=== PATIENT | female | born 1940 | race Caucasian/White ===

== ENCOUNTER 2024-11-24 18:57 | Emergency (ER) | payer MEDICARE ==
[~2024-11-24] VITALS: Ht 165.1 cm; Wt 59.1 kg
[2024-11-24] MEDS ORDERED: orphenadrine citrate 60mg/2ml inj. IM ONE (21:05)
[2024-11-24] MEDS: ketorolac trometh 15mg/ml vial 15 MG/ML ML IM ONE (21:50)
[2024-11-24] MEDS: LIDOcaine 5% patch TP ONE (21:51)
[2024-11-24] MEDS: ondansetron 4mg rapidly disintigrating tab PO ONE (21:51)
[2024-11-24] MEDS: acetaminophen 325mg tablet PO ONE (21:51)
[2024-11-24] MEDS ORDERED: iohexol 350MG/ML 100ml bottle IV ONE (22:14)
[2024-11-24 23:05] LABS: BASOPHILS % (AUTO) 0.3 % (0-1); EOSINOPHILS % (AUTO) 0.1 % (0-6); HEMATOCRIT 37.7 % (35.0-45.0); HEMOGLOBIN 12.8 g/dl (12.0-16.0); LYMPHOCYTES % (AUTO) 8.3 % (21-51); MEAN CORPUSCULAR HGB CONC 33.9 g/dL (33.0-36.5); MEAN CORPUSCULAR VOLUME 85.6 FL (78-98); MEAN PLATELET VOLUME 6.9 FL (7.4-10.4); MONOCYTES # (AUTO) 0.6 X10'3 (0-0.9); MONOCYTES % (AUTO) 4.7 % (2-12); NEUTROPHILS # (AUTO) 10.5 X10'3 (1.8-7.7); NEUTROPHILS % (AUTO) 86.6 % (42-75); PLATELET COUNT 223 X10'3 (140-440); RED BLOOD COUNT 4.41 X10'6 (4.20-5.60); RED CELL DISTRIBUTION WIDTH 13.6 % (11.5-14.5); WHITE BLOOD COUNT 12.2 X10'3 (4.5-11.0)
[2024-11-24] MEDS: esmolol/sodium cl bag 250 ML IV SCH (23:09)
[2024-11-24 23:16] LABS: ALBUMIN 3.5 G/DL (3.4-5.0); ANION GAP 10 (8-16); BLOOD UREA NITROGEN 22 MG/DL (7-18); CALCIUM 9.1 MG/DL (8.5-10.1); CHLORIDE 98 MMOL/L (99-107); CREATININE 0.88 MG/DL (0.40-0.90); GLUCOSE 114 MG/DL (70-104); POTASSIUM 3.6 MMOL/L (3.5-5.1); SODIUM 135 MMOL/L (135-145); TOTAL CARBON DIOXIDE 26.6 MMOL/L (24-32); eCRCL 44 ML/MIN; eGFR 61 ML/MIN
[2024-11-24 23:19] LABS: APTT 29 SECONDS (22-32); INR 1.1 INR; PROTHROMBIN TIME 11.4 SECONDS (9.0-12.0)
[2024-11-24] MEDS: fentaNYL/PF 50MCG/1 ML 2ML syringe IV ONE (23:20)
[2024-11-25 01:47] LABS: BILIRUBIN,URINE NEGATIVE (Neg); CLARITY,URINE CLEAR (Clear); COLOR,URINE YELLOW (Yellow); GLUCOSE, URINE NEGATIVE (Neg); KETONES,URINE 15 mg/dl (Neg); LEUKOCYTE ESTERASE ,URINE NEGATIVE (Neg); NITRITES, URINE NEGATIVE (Neg); OCCULT BLOOD,URINE SMALL (Neg); PROTEIN,URINE TRACE mg/dl (Neg); UROBILINOGEN,URINE 0.2 E.U/dL (0.2-1.0)
[2024-11-25 01:56] LABS: BACTERIA,URINE FEW /HPF (Neg); SQUAMOUS EPITHELIAL CELL,UR MODERATE /LPF (FEW); UA COLLECTION TYPE CLN CATCH MIDSTREAM; WBC,URINE 0-4 /HPF (0-4)
[2024-11-25] MEDS: fentaNYL/PF 50MCG/1 ML 2ML syringe IV ONE (02:13)
[2024-11-25 04:03] VITALS: BP 115/66; PULSE 67; RESP 11; TEMP 98.5; O2SAT 97
== END 2024-11-25 04:00 | disposition hospice, inpatient (51) ==
LOC: ER 18:58
DX: I71.40 Abdominal aortic aneurysm, without rupture, unspecified (principal)
CPT/HCPCS: 36415; 71045; 71275; 74174; 74176; 80048; 81001; 85025; 85610; 85730; 86885; 86900; 86901; 93005; 96365; 96366; 96372; 96375; 96376; 99285; J1885; J3010; J3490; Q9967; 96374